=== PATIENT | female | born 1970 | race Two or more races ===

== ENCOUNTER 2017-07-03 18:59 | Emergency (ER) | payer MEDICAID ==
[2017-07-03 20:22] VITALS: BP 131/78
== END 2017-07-03 20:22 | disposition home or self-care (01) ==
LOC: ED 18:59
DX: J98.01 Acute bronchospasm (principal); R03.0 Elevated blood-pressure reading, without diagnosis of hypertension; Z88.5 Allergy status to narcotic agent
CPT/HCPCS: J7512; J7613

== ENCOUNTER 2017-12-09 01:02 | Emergency (ER) | payer MEDICAID ==
[~2017-12-09] VITALS: Ht 157.5 cm; Wt 99.8 kg
[2017-12-09 01:09] VITALS: Ht 157.5 cm; Wt 99.8 kg
[2017-12-09 06:04] VITALS: BP 133/79
== END 2017-12-09 05:59 | disposition home or self-care (01) ==
LOC: ED 01:02
DX: J45.901 Unspecified asthma with (acute) exacerbation (principal); Z76.0 Encounter for issue of repeat prescription; Z88.5 Allergy status to narcotic agent
CPT/HCPCS: J7512; J7613